=== PATIENT | male | born 1960 | race Caucasian/White ===

== ENCOUNTER 2024-01-03 08:28 | Outpatient (CLI) | payer BC, MEDICARE | END 2024-01-03 23:59 | disposition home or self-care (01) | LOC: RAD 08:28 | PROVIDERS: ATTEND Nurse Practitioner Family | DX: M47.27 Other spondylosis with radiculopathy, lumbosacral region (principal); M51.16 Intervertebral disc disorders with radiculopathy, lumbar region; M43.16 Spondylolisthesis, lumbar region; M48.07 Spinal stenosis, lumbosacral region; M53.2X6 Spinal instabilities, lumbar region; M16.0 Bilateral primary osteoarthritis of hip; M25.852 Other specified joint disorders, left hip; M25.851 Other specified joint disorders, right hip; M25.752 Osteophyte, left hip; M25.751 Osteophyte, right hip; G89.29 Other chronic pain; Z76.89 Persons encountering health services in other specified circumstances | CPT/HCPCS: 72110; 73522 ==

== ENCOUNTER 2024-04-22 16:16 | Outpatient (CLI) | payer BC, MEDICARE ==
[2024-04-22 16:38] LABS: BASOPHILS % (AUTO) 0.6 % (0-1); EOSINOPHILS # (AUTO) 0.3 X10'3 (0-0.9); EOSINOPHILS % (AUTO) 3.7 % (0-6); HEMATOCRIT 41.5 % (42.0-52.0); HEMOGLOBIN 13.9 g/dl (14.0-17.9); LYMPHOCYTES % (AUTO) 26.1 % (21-51); MEAN CORPUSCULAR HEMOGLOBIN 29.6 PG (27.0-31.0); MEAN CORPUSCULAR HGB CONC 33.5 g/dL (33.0-36.5); MEAN CORPUSCULAR VOLUME 88.5 FL (78-98); MEAN PLATELET VOLUME 6.1 FL (7.4-10.4); MONOCYTES # (AUTO) 0.8 X10'3 (0-0.9); MONOCYTES % (AUTO) 10.5 % (2-12); NEUTROPHILS # (AUTO) 4.5 X10'3 (1.8-7.7); NEUTROPHILS % (AUTO) 59.1 % (42-75); PLATELET COUNT 354 X10'3 (140-440); RED BLOOD COUNT 4.69 X10'6 (4.70-6.10); RED CELL DISTRIBUTION WIDTH 13.4 % (11.5-14.5); WHITE BLOOD COUNT 7.5 X10'3 (4.5-11.0)
[2024-04-22 16:50] LABS: ALANINE AMINOTRANSFERASE 30 U/L (12-78); ALBUMIN 3.5 G/DL (3.4-5.0); ALKALINE PHOSPHATASE 78 IU/L (46-116); ANION GAP 6 (8-16); ASPARTATE AMINO TRANSFERASE 19 U/L (10-37); BILIRUBIN,TOTAL 0.4 MG/DL (0.1-1.0); BLOOD UREA NITROGEN 19 MG/DL (7-18); BUN/CREATININE RATIO 26.4 (10.0-20.0); CALCIUM 8.9 MG/DL (8.5-10.1); CHLORIDE 106 MMOL/L (99-107); CHOL/HDL RATIO 5.2 (0.00-4.99); CHOLESTEROL 186 MG/DL (0-200); CREATININE 0.72 MG/DL (0.60-1.10); GLUCOSE 90 MG/DL (70-104); HDL CHOLESTEROL 36 MG/DL (35-60); LDL CHOLESTEROL 84 MG/DL (50-100); POTASSIUM 3.9 MMOL/L (3.5-5.1); SODIUM 139 MMOL/L (135-145); TOTAL CARBON DIOXIDE 27.4 MMOL/L (24-32); TRIGLYCERIDES 566 MG/DL (20-135); eGFR > 90 ML/MIN
== END 2024-04-22 23:59 | disposition home or self-care (01) ==
LOC: RAD 16:16
PROVIDERS: ATTEND Nurse Practitioner Family
DX: Z13.1 Encounter for screening for diabetes mellitus (principal); Z13.220 Encounter for screening for lipoid disorders; M25.851 Other specified joint disorders, right hip; Z86.2 Personal history of diseases of the blood and blood-forming organs and certain disorders involving the immune mechanism
CPT/HCPCS: 36415; 80053; 80061; 85025

== ENCOUNTER 2025-01-09 09:40 | Outpatient (CLI) | payer BC ==
[2025-01-09 10:08] LABS: LEUKOCYTE ESTERASE ,URINE NEGATIVE (Neg); NITRITES, URINE NEGATIVE (Neg); OCCULT BLOOD,URINE NEGATIVE (Neg)
[2025-01-09 10:12] LABS: UA COLLECTION TYPE NON-SPECIFIED
[2025-01-09 10:13] LABS: MEAN PLATELET VOLUME 6.3 FL (7.4-10.4); RED CELL DISTRIBUTION WIDTH 13.3 % (11.5-14.5)
[2025-01-09 10:24] LABS: CHOL/HDL RATIO 4.4 (0.00-4.99); CREATININE 0.94 MG/DL (0.60-1.10); LDL CHOLESTEROL 80 MG/DL (50-100); TOTAL CARBON DIOXIDE 28.3 MMOL/L (24-32); eGFR 81 ML/MIN
[2025-01-10 11:12] LABS: PSA, ULTRASENSITIVE W/O SERIAL 1.84 ng/mL (0.000-4.000); VITAMIN D, 25-HYDROXY 23.0 ng/mL (30.0-100.0)
== END 2025-01-09 23:59 | disposition home or self-care (01) ==
LOC: RAD 09:40
PROVIDERS: ATTEND Nurse Practitioner Family
DX: E55.9 Vitamin D deficiency, unspecified (principal); E78.5 Hyperlipidemia, unspecified; G89.29 Other chronic pain; Z12.5 Encounter for screening for malignant neoplasm of prostate; Z00.00 Encounter for general adult medical examination without abnormal findings; Z86.2 Personal history of diseases of the blood and blood-forming organs and certain disorders involving the immune mechanism
CPT/HCPCS: 36415; 80053; 80061; 81003; 82306; 84153; 85025